=== PATIENT | male | born 1975 | race Caucasian/White ===

== ENCOUNTER 2022-03-22 07:30 | Day surgery (SDC) | payer BC ==
[2022-03-20 15:50] VITALS: BMI 35.2
[2022-03-22] MEDS ORDERED: BUPIVACAINE HCL/EPINEPHRINE/PF 30 ML VIAL IJ ONE (08:48)
[2022-03-22] MEDS ORDERED: MIDAZOLAM HCL 2 MG/2 ML SINGLE DOSE VIAL ONE (09:03)
[2022-03-22] MEDS ORDERED: fentaNYL CITRATE 250 MCG/5 ML VIAL ONE (09:04)
[2022-03-22] MEDS ORDERED: PROPOFOL 20 ML ONE (09:54)
[2022-03-22] MEDS ORDERED: LIDOCAINE HCL/PF 2% SDV 5ML VIAL ONE (10:18)
[2022-03-22] MEDS ORDERED: DEXAMETHASONE SOD PHOSPHATE 4 MG/1 ML VIAL ONE (10:18)
[2022-03-22] MEDS ORDERED: ceFAZolin SODIUM 1 GM VIAL ONE (10:18)
[2022-03-22] MEDS ORDERED: ONDANSETRON 4 MG/2 ML VIAL ONE (10:18)
[2022-03-22] MEDS ORDERED: KETOROLAC TROMETHAMINE 30 MG/1 ML VIAL ONE (10:18)
[2022-03-22] MEDS ORDERED: oxyCODONE HCL 5 MG TABLET PO PRN (11:01)
[2022-03-22] MEDS ORDERED: ONDANSETRON 4 MG/2 ML VIAL IVPUSH PRN (11:01)
[2022-03-22] MEDS ORDERED: ACETAMINOPHEN 1000 MG/100 ML BAG IVPB ONE (11:02)
[2022-03-22 11:07] VITALS: TEMP 97.8
[2022-03-22] MEDS ORDERED: LACTATED RINGERS SOLUTION 1,000 ML IV SCH (11:15)
[2022-03-22] MEDS ORDERED: oxyCODONE HCL 5 MG TABLET ONE (12:05)
[2022-03-22 13:19] VITALS: BP 116/72; PULSE 96
== END 2022-03-22 12:50 | disposition home or self-care (01) ==
LOC: FASU 07:30
PROVIDERS: ATTEND Orthopaedic Surgery
PROC: 0SBC4ZZ Excision of Right Knee Joint, Percutaneous Endoscopic Approach (ICD-10-PCS; principal; 2022-03-22 09:15)
DX: S83.241A Other tear of medial meniscus, current injury, right knee, initial encounter (principal); M17.11 Unilateral primary osteoarthritis, right knee; X58.XXXA Exposure to other specified factors, initial encounter; Y93.9 Activity, unspecified; Y92.9 Unspecified place or not applicable
CPT/HCPCS: 94760